=== PATIENT | male | born 1950 | race Caucasian/White ===

== ENCOUNTER 2019-08-31 03:29 | Emergency (ER) | payer OTHER ==
[~2019-08-31] VITALS: Ht 172.7 cm; Wt 104.0 kg
[~2019-08-31 03:29] MED LIST: AMIO200T PO; ATOR20TA PO; Aspirin PO; CLOP75TA33 PO; COR3 PO; FURO20TA4 PO; Folic Acid PO; Levothyroxine Sodium PO; Lisinopril PO; METO25TA6 PO; Multivitamins,Ther W-Minerals PO; PRAS10TA6 PO; Thiamine Hcl PO
[2019-08-31 07:11] LABS: BASOPHILS % 0.5 % (0.0-2.0); EOSINOPHILS % 0.2 % (0.0-5.0); HEMATOCRIT. 39.1 % (42.0-52.0); HEMOGLOBIN. 13.5 g/dL (14.0-18.0); LYMPHOCYTES % 46.9 % (20.0-50.0); MEAN CORPUSCULAR HEMOGLOBIN 32.1 pg (28.0-32.0); MEAN CORPUSCULAR VOLUME 92.9 fL (80.0-94.0); MONOCYTES % 5.7 % (2.0-8.0); NEUTROPHILS % 46.7 % (40.0-76.0); PLATELET 192 x1000/uL (130-400)
[2019-08-31 07:18] LABS: CHLORIDE 105 mEq/L (98-107)
[2019-08-31 07:22] LABS: ETHANOL BLOOD 153 mg/dL
[2019-08-31] MEDS ORDERED: POTASSIUM CHLORIDE 20MEQ/PACKET PO ONE (07:30)
[2019-08-31] MEDS ORDERED: CHLORDIAZEPOXIDE 25MG CAPSULE PO ONE (09:00)
[2019-08-31] MEDS ORDERED: METOPROLOL TARTRATE 25MG TABLET PO ONE (09:30)
[2019-08-31] MEDS ORDERED: ONDANSETRON 4MG ODT PO ONE (10:00)
[2019-08-31] MEDS ORDERED: METOCLOPRAMIDE HCL 10MG/2ML VIAL IM ONE (11:15)
[2019-08-31 11:26] VITALS: BP 135/79
== END 2019-08-31 12:10 | disposition home or self-care (01) ==
LOC: ER 03:49
DX: E16.2 Hypoglycemia, unspecified (principal); E87.6 Hypokalemia; I10 Essential (primary) hypertension; F10.129 Alcohol abuse with intoxication, unspecified; Y90.6 Blood alcohol level of 120-199 mg/100 ml; Z79.899 Other long term (current) drug therapy
CPT/HCPCS: 36415; 80053; 80320; 82962; 85025; 96372; 99284; J2765; Q0162; G0480

== ENCOUNTER 2019-10-19 11:37 | Emergency (ER) | payer OTHER ==
[~2019-10-19] VITALS: Ht 165.1 cm; Wt 62.0 kg
[2019-10-19] MEDS ORDERED: SODIUM CHLORIDE 0.9% 1,000 ML IV ONE (11:58)
[2019-10-19] MEDS ORDERED: ONDANSETRON HCL 4MG/2ML INJ IV STA (11:58)
[2019-10-19] MEDS ORDERED: FAMOTIDINE 20MG/2ML VIAL IV STA (11:58)
[2019-10-19] MEDS ORDERED: FOLIC ACID 1 MG, THIAMINE HCL 100 MG, MVI, ADULT NO.1 10 ML in DEXTROSE 5% WATER 1,000 ML IV ONE ×4 (12:00)
[2019-10-19 14:32] LABS: BASOPHILS % 0.4 % (0.0-2.0); EOSINOPHILS % 0.5 % (0.0-5.0); HEMATOCRIT. 44.5 % (42.0-52.0); HEMOGLOBIN. 15.4 g/dL (14.0-18.0); LYMPHOCYTES % 19.3 % (20.0-50.0); MEAN CORPUSCULAR HEMOGLOBIN 32.5 pg (28.0-32.0); MEAN CORPUSCULAR VOLUME 94.4 fL (80.0-94.0); MONOCYTES % 6.4 % (2.0-8.0); NEUTROPHILS % 73.4 % (40.0-76.0); RED BLOOD CELL COUNT 4.72 mill/uL (4.7-6.1); RED CELL DISTRIBUTION WIDTH 13.2 % (11.6-14.6)
[2019-10-19 14:37] LABS: CHLORIDE 101 mEq/L (98-107); PROTHROMBIN TIME 21.5 sec (9.6-11.0)
[2019-10-19 14:40] LABS: ETHANOL BLOOD 92 mg/dL
[2019-10-19] MEDS ORDERED: POTASSIUM CHLORIDE 20MEQ TABLET SR PO ONE (14:45)
[2019-10-19 14:55] LABS: MEAN PLATELET VOLUME 8.4 fl (7.4-10.4); PLATELET 124 x1000/uL (130-400); PLATELET ESTIMATE SLIGHTLY DECREASED
[2019-10-19 15:55] LABS: CLARITY URINE CLEAR (CLEAR); COLOR URINE YELLOW (YELLOW); KETONES URINE 3+ (NEGATIVE); LEUKOCYTE ESTERASE URINE NEGATIVE (NEGATIVE); NITRITE URINE NEGATIVE (NEGATIVE); OCCULT BLOOD URINE 1+ (NEGATIVE); PH URINE 5.5 (4.5-8.0); PROTEIN URINE NEGATIVE (NEGATIVE); SPECIFIC GRAVITY URINE 1.019 (1.005-1.030)
[2019-10-19 16:53] VITALS: BP 139/84
== END 2019-10-19 16:54 | disposition home or self-care (01) ==
LOC: ER 12:06
DX: K29.20 Alcoholic gastritis without bleeding (principal); F10.20 Alcohol dependence, uncomplicated; I11.9 Hypertensive heart disease without heart failure; R06.02 Shortness of breath; R11.2 Nausea with vomiting, unspecified; Z79.899 Other long term (current) drug therapy; Y90.9 Presence of alcohol in blood, level not specified
CPT/HCPCS: 36415; 80053; 80320; 81003; 83690; 85025; 85610; 96361; 96365; 96366; 96375; 99284; J2405; J3411; J3490; J7030; J7070; G0480

== ENCOUNTER 2020-03-26 09:21 | Inpatient (IN) | payer OTHER ==
[~2020-03-26] VITALS: Ht 170.2 cm; Wt 88.5 kg
[2020-03-26] MEDS ORDERED: KETOROLAC 30MG/ML VIAL IV STA (09:43)
[2020-03-26] MEDS ORDERED: SODIUM CHLORIDE 0.9% 1,000 ML IV ONE ×2 (09:43→11:41)
[2020-03-26] MEDS ORDERED: ONDANSETRON HCL 4MG/2ML INJ IV STA (09:43)
[2020-03-26 11:07] LABS: HEMATOCRIT. 31.5 % (42.0-52.0); HEMOGLOBIN. 11.4 g/dL (14.0-18.0); MEAN CORPUSCULAR HEMOGLOBIN 31.7 pg (28.0-32.0); RED BLOOD CELL COUNT 3.58 mill/uL (4.7-6.1); RED CELL DISTRIBUTION WIDTH 12.8 % (11.6-14.6)
[2020-03-26 11:13] LABS: CHLORIDE 91 mEq/L (98-107)
[2020-03-26 11:16] LABS: INR 1.2; PROTHROMBIN TIME 12.5 sec (9.6-11.0)
[2020-03-26 11:33] LABS: BG CARBOXYHEMOGLOBIN 0.3 % (0.5-1.5); BG DEOXYHEMOGLOBIN 4.3 % (0.0-5.0); BG FRACTION INSPIRED OXYGEN 21; BG HCO3 ACT 13.9 mmol/L (22.0-26.0); BG METHEMOGLOBIN 0.3 % (0.0-1.5); BG OXYGEN SATURATION 95.7 % (92.0-98.5); BG OXYHEMOGLOBIN 95.1 % (94.0-97.0); BG PCO2 22.4 mmHg (35.0-45.0); BG PO2 77.2 mmHg (75.0-100.0); BG SAMPLE SITE RIGHT BRACHIAL; BG TOTAL HEMOGLOBIN 11.1 g/dL (12.0-18.0); BG VENT MODE ROOM AIR
[2020-03-26 12:26] LABS: ATYPICAL LYMPHOCYTES 1
[2020-03-26 12:27] LABS: PLATELET ESTIMATE NORMAL
[2020-03-26 12:28] LABS: PLATELET 194 x1000/uL (130-400)
[2020-03-26 16:00] VITALS: BP 101/73
[2020-03-26 16:40] VITALS: BP 112/72
[2020-03-26] MEDS ORDERED: HYDR5TAB8 PO (16:44)
[2020-03-26] MEDS ORDERED: BISO10TA11 PO (16:44)
[2020-03-26] MEDS ORDERED: GABA-533 PO (16:44)
[2020-03-26] MEDS ORDERED: OMEP20CA14 PO (16:44)
[2020-03-26] MEDS ORDERED: POTA10TA2 PO (16:44)
[2020-03-26] MEDS ORDERED: SUCR1TAB MT (16:44)
[2020-03-26] MEDS ORDERED: CEFTRIAXONE 1 G PREMIX 50 ML IV SCH (18:00)
[2020-03-26] MEDS ORDERED: HYDROCODONE/ACETAMINOPHEN 10/325MG TABLET PO PRN (18:00)
[2020-03-26] MEDS ORDERED: CLONIDINE 0.1MG TABLET PO PRN (18:00)
[2020-03-26] MEDS ORDERED: IPRATROPIUM/ALBUTEROL 0.5-3(2.5)MG/3ML NEB HHN PRN (18:00)
[2020-03-26] MEDS ORDERED: GUAIFENESIN 200MG/10ML SUGAR FREE UDC PO PRN (18:00)
[2020-03-26] MEDS ORDERED: ACETAMINOPHEN 325MG TABLET PO PRN (18:00)
[2020-03-26] MEDS ORDERED: HYDRALAZINE 20MG/ML VIAL IV PRN (18:00)
[2020-03-26] MEDS ORDERED: MAGNESIUM/ALUMINUM HYDROXIDE/SIMETHICONE 30ML UDC PO PRN (18:00)
[2020-03-26] MEDS ORDERED: LORAZEPAM 2MG/ML CPJ IV PRN (18:00)
[2020-03-26] MEDS ORDERED: DOCUSATE SODIUM 100MG CAPSULE PO PRN (18:00)
[2020-03-26] MEDS ORDERED: MORPHINE SULFATE 2 MG/ML CPJ (NOT FOR IM USE) IV PRN (18:00)
[2020-03-26] MEDS ORDERED: DIPHENHYDRAMINE 50MG/ML VIAL IV PRN (18:00)
[2020-03-26] MEDS: FOLIC ACID 1MG TABLET PO SCH (18:42)
[2020-03-26] MEDS: MULTIVITAMINS,THER W-MINERALS TABLET PO SCH (18:42)
[2020-03-26] MEDS: ENOXAPARIN 40MG/0.4ML SYR SUBCUT SCH (18:43)
[2020-03-26] MEDS: THIAMINE HCL 100MG TABLET PO SCH (18:43)
[2020-03-26 20:00] VITALS: BP 127/71
[2020-03-26] MEDS ORDERED: AZITHROMYCIN 500 MG in DEXT 5% WATER 250 ML IV NR (21:00)
[2020-03-26] MEDS: ONDANSETRON HCL 4MG/2ML INJ IV PRN (21:49)
[2020-03-26] MEDS: SODIUM CHLORIDE 0.9% INJ 3ML FLUSH IVF SCH (21:49)
[2020-03-26] MEDS: CEFTRIAXONE 1,000 MG in DEXTROSE 5% WATER 50 ML IV SCH (21:49)
[2020-03-27] VITALS: BP 122/67
[2020-03-27 04:00] VITALS: BP 105/67
[2020-03-27] MEDS: ONDANSETRON HCL 4MG/2ML INJ IV PRN (05:33)
[2020-03-27] MEDS: SODIUM CHLORIDE 0.9% INJ 3ML FLUSH IVF SCH ×3 (05:33→21:29)
[2020-03-27 08:45] LABS: CHLORIDE 93 mEq/L (98-107)
[2020-03-27] MEDS: FOLIC ACID 1MG TABLET PO SCH (08:59)
[2020-03-27] MEDS: THIAMINE HCL 100MG TABLET PO SCH (08:59)
[2020-03-27] MEDS: MULTIVITAMINS,THER W-MINERALS TABLET PO SCH (08:59)
[2020-03-27 09:33] LABS: BASOPHILS % 0.7 % (0.0-2.0); EOSINOPHILS % 1.1 % (0.0-5.0); HEMATOCRIT. 31.5 % (42.0-52.0); HEMOGLOBIN. 11.3 g/dL (14.0-18.0); LYMPHOCYTES % 16.8 % (20.0-50.0); MEAN CORPUSCULAR HEMOGLOBIN 31.4 pg (28.0-32.0); MEAN CORPUSCULAR VOLUME 87.6 fL (80.0-94.0); MEAN PLATELET VOLUME 8.1 fl (7.4-10.4); MONOCYTES % 12.9 % (2.0-8.0); NEUTROPHILS % 68.5 % (40.0-76.0); PLATELET 197 x1000/uL (130-400); RED CELL DISTRIBUTION WIDTH 13.1 % (11.6-14.6)
[2020-03-27 16:08] VITALS: BP 134/74
[2020-03-27] MEDS: AZITHROMYCIN 250 MG in DEXT 5% WATER 250 ML IV SCH (16:43)
[2020-03-27] MEDS: ENOXAPARIN 40MG/0.4ML SYR SUBCUT SCH (17:39)
[2020-03-27 20:22] VITALS: BP 136/75
[2020-03-27] MEDS: CEFTRIAXONE 1,000 MG in DEXTROSE 5% WATER 50 ML IV SCH (21:29)
[2020-03-27 23:53] VITALS: BP 117/63
[2020-03-28 04:00] VITALS: BP 107/74
[2020-03-28] MEDS: SODIUM CHLORIDE 0.9% INJ 3ML FLUSH IVF SCH ×3 (05:17→22:00)
[2020-03-28 08:11] VITALS: BP 112/70
[2020-03-28] MEDS: THIAMINE HCL 100MG TABLET PO SCH (08:14)
[2020-03-28] MEDS: FOLIC ACID 1MG TABLET PO SCH (08:15)
[2020-03-28] MEDS: MULTIVITAMINS,THER W-MINERALS TABLET PO SCH (08:15)
[2020-03-28 11:34] VITALS: BP 109/69
[2020-03-28] MEDS: AZITHROMYCIN 250 MG in DEXT 5% WATER 250 ML IV SCH (14:00)
[2020-03-28 16:08] VITALS: BP 119/72
[2020-03-28] MEDS: ENOXAPARIN 40MG/0.4ML SYR SUBCUT SCH (17:18)
[2020-03-28] MEDS: CEFTRIAXONE 1,000 MG in DEXTROSE 5% WATER 50 ML IV SCH (20:00)
[2020-03-28 20:18] VITALS: BP 114/70
[2020-03-29 00:12] VITALS: BP 104/64
[2020-03-29 04:00] VITALS: BP 103/67
[2020-03-29] MEDS: SODIUM CHLORIDE 0.9% INJ 3ML FLUSH IVF SCH ×3 (05:36→21:43)
[2020-03-29 06:57] LABS: CHLORIDE 95 mEq/L (98-107)
[2020-03-29 08:00] VITALS: BP 106/68
[2020-03-29] MEDS: MULTIVITAMINS,THER W-MINERALS TABLET PO SCH (08:31)
[2020-03-29] MEDS: THIAMINE HCL 100MG TABLET PO SCH (08:31)
[2020-03-29] MEDS: FOLIC ACID 1MG TABLET PO SCH (08:31)
[2020-03-29] MEDS: AZITHROMYCIN 250 MG TABLET PO SCH (11:51)
[2020-03-29 12:00] VITALS: BP 114/73
[2020-03-29 13:05] LABS: T4 FREE 1.58 ng/dL (0.76-1.46)
[2020-03-29] MEDS ORDERED: LIDOCAINE HCL 1% 20ML VIAL (Pyxis) INJ ONE (13:08)
[2020-03-29] MEDS: ALBUTEROL 6.7GM HFA INHALER ORI SCH ×2 (15:36→20:00)
[2020-03-29] MEDS: FLUTICASONE FUROATE 100 1 INH/CAP ORI SCH ×2 (15:37→21:00)
[2020-03-29] MEDS: FUROSEMIDE 40MG TABLET PO SCH (15:37)
[2020-03-29] MEDS: ASPIRIN 81MG TABLET PO SCH (15:37)
[2020-03-29 16:00] VITALS: BP 96/63
[2020-03-29] MEDS: ENOXAPARIN 40MG/0.4ML SYR SUBCUT SCH (17:40)
[2020-03-29] MEDS: CEFTRIAXONE 1,000 MG in DEXTROSE 5% WATER 50 ML IV SCH (19:59)
[2020-03-29 20:00] VITALS: BP 104/65
[2020-03-29] MEDS: CARVEDILOL 3.125 MG TABLET PO SCH (21:00)
[2020-03-29] MEDS ORDERED: ATORVASTATIN CALCIUM 20MG TABLET PO SCH (21:00)
[2020-03-30] VITALS (7 sets, daily range): BP systolic 93–105; BP diastolic 61–68
[2020-03-30] MEDS: ALBUTEROL 6.7GM HFA INHALER ORI SCH ×3 (01:21→14:15)
[2020-03-30 05:09] LABS: HEMATOCRIT. 31.1 % (42.0-52.0); HEMOGLOBIN. 11.1 g/dL (14.0-18.0); MEAN CORPUSCULAR HEMOGLOBIN 31.3 pg (28.0-32.0); MEAN CORPUSCULAR VOLUME 87.9 fL (80.0-94.0); PLATELET 336 x1000/uL (130-400); RED BLOOD CELL COUNT 3.54 mill/uL (4.7-6.1); RED CELL DISTRIBUTION WIDTH 12.7 % (11.6-14.6)
[2020-03-30] MEDS: SODIUM CHLORIDE 0.9% INJ 3ML FLUSH IVF SCH ×2 (05:15→14:14)
[2020-03-30 05:36] LABS: CHLORIDE 95 mEq/L (98-107)
[2020-03-30] MEDS: CARVEDILOL 3.125 MG TABLET PO SCH ×2 (09:00→09:43)
[2020-03-30] MEDS: FLUTICASONE FUROATE 100 1 INH/CAP ORI SCH ×2 (09:00→17:17)
[2020-03-30] MEDS: THIAMINE HCL 100MG TABLET PO SCH (09:43)
[2020-03-30] MEDS: ASPIRIN 81MG TABLET PO SCH (09:43)
[2020-03-30] MEDS: MULTIVITAMINS,THER W-MINERALS TABLET PO SCH (09:43)
[2020-03-30] MEDS: FUROSEMIDE 40MG TABLET PO SCH (09:43)
[2020-03-30] MEDS: FOLIC ACID 1MG TABLET PO SCH (09:44)
[2020-03-30] MEDS: AZITHROMYCIN 250 MG TABLET PO SCH (12:13)
[2020-03-30] MEDS ORDERED: GABAPENTIN 400MG CAPSULE PO SCH (13:00)
[2020-03-30] MEDS: GABAPENTIN 400MG CAPSULE PO PRN ×2 (14:15→19:05)
[2020-03-30] MEDS ORDERED: SODIUM CHLORIDE 0.9% 500 ML IV ONE (15:45)
[2020-03-30 17:53] LABS: PLATELET ESTIMATE NORMAL
[2020-03-30] MEDS: ENOXAPARIN 40MG/0.4ML SYR SUBCUT SCH (19:05)
== END 2020-03-30 20:35 | disposition short-term general hospital (02) | DRG 177 ==
LOC: ER 09:21 → 7WST 12:34 → ENRESERV 14:14
PROVIDERS: ADMIT Internal Medicine; ATTEND Internal Medicine
PROC: 05HY33Z Insertion of Infusion Device into Upper Vein, Percutaneous Approach (ICD-10-PCS; principal; 2020-03-29)
PROC: B54MZZA Ultrasonography of Right Upper Extremity Veins, Guidance (ICD-10-PCS; 2020-03-29)
DX: U07.1 COVID-19 (principal); J96.00 Acute respiratory failure, unspecified whether with hypoxia or hypercapnia; J12.89 Other viral pneumonia; E87.1 Hypo-osmolality and hyponatremia; I42.0 Dilated cardiomyopathy; D64.9 Anemia, unspecified; E78.5 Hyperlipidemia, unspecified; I25.10 Atherosclerotic heart disease of native coronary artery without angina pectoris; K70.30 Alcoholic cirrhosis of liver without ascites; I50.9 Heart failure, unspecified; I11.0 Hypertensive heart disease with heart failure; I95.9 Hypotension, unspecified; I10 Essential (primary) hypertension; E03.9 Hypothyroidism, unspecified; Z86.73 Personal history of transient ischemic attack (TIA), and cerebral infarction without residual deficits; Z95.810 Presence of automatic (implantable) cardiac defibrillator; Z79.899 Other long term (current) drug therapy; Z79.82 Long term (current) use of aspirin
CPT/HCPCS: 36415; 36600; 71045; 76937; 80048; 80053; 80061; 82375; 82805; 83735; 83880; 84295; 84439; 84443; 84481; 85025; 93005; 99285; C1725; J0456; J0696; J1650; J1885; J2405; J3490; J7030; J7060; U0003-CS